=== PATIENT | female | born 1975 ===

== ENCOUNTER 2020-01-25 14:21 | Emergency (ER) | payer OTHER ==
[~2020-01-25] VITALS: Ht 182.9 cm; Wt 64.0 kg
[2020-01-25 14:40] VITALS: BP 115/72
--- NOTE | 2020-01-25 14:45 | NUR ---
THIS IS A 44 YO F BIB EMS AND [facility] W/ C/O SI/SA. EMS PROVIDED 4 PAGE LETTER WRITTEN BY PT OUTLINING THE REASON FOR HER DECISION, HOW SHE FAILED A PHYSICIAN AND HER WISHES FOR AFTER HER . PT REPORTS TAKING VALIUM AND WINE ON FRIDAY AFTERNOON, WHEN ASKED PT HOW MUCH VALIUM SHE TOOK SHE STATES "I DONT REMEMBER, NOT ENOUGH". [facility] REPORTS PT TEXTED FAMILY REPORTING THAT SHE ATTEMPTED TO KILL HERSELF AND THAT SHE IS DISAPPOINTED THAT SHE WOKE UP. PT PRESENTS WITH A FLAT AFFECT, AMBULATED W/ A STEADY GAIT TO THE BR. VSSBISIN. URINE COLLECTED AND SENT TO LAB. PT UPDATED ON LEGAL HOLD PROCESS. BELONGINGS REMOVED AND PLACED IN SAFETY LOCKER. GARAGE DOORS DOWN. SITTER LOCATED OUTSIDE ROOM. AT BEDSIDE FOR ED EVAL.
--- NOTE | 2020-01-25 15:00 | NUR ---
JULIO C LowryAARON) [phone] LICO ([employer]) [phone] Addendum: 01/25/20 at 1515 by CBRUCIAGA JULIO C ROSENBAUM) CELL: [phone] WORK: [phone] LICO ([employer]UGH[employer]) [phone]
[2020-01-25 15:11] LABS: AMPHETAMINE SCREEN, URINE Negative (Negative); BARBITURATE SCREEN, URINE Negative (Negative); BENZODIAZEPINE SCREEN, URINE Positive (Negative); CANNABINOID SCREEN, URINE Negative (Negative); COCAINE SCREEN, URINE Negative (Negative); METHADONE SCREEN, URINE Negative (Negative); OPIATE SCREEN, URINE Negative (Negative)
--- NOTE | 2020-01-25 15:17 | NUR ---
NOEL GRACIA AT BEDSIDE.
[2020-01-25 15:20] LABS: BASOPHILS # (AUTO) 0.07 x10^3/uL (0-0.1); BASOPHILS % (AUTO) 1 % (0-1); EOSINOPHILS # (AUTO) 0.11 x10^3/uL (0-0.4); EOSINOPHILS % (AUTO) 2 % (1-7); LYMPHOCYTES % (AUTO) 33 % (22-44); MD NO; MEAN CORPUSCULAR HGB CONC 32.8 g/dL (32.4-35.8); MEAN CORPUSCULAR VOLUME 94.5 fL (80-100); MEAN PLATELET VOLUME 8.1 fL (7.4-10.4); MONOCYTES # (AUTO) 0.33 x10^3/uL (0.2-0.8); MONOCYTES % (AUTO) 5 % (2-9); NEUTROPHILS # (AUTO) 4.39 x10^3/uL (1.8-6.8); NEUTROPHILS % (AUTO) 60 % (42-75); PLATELET COUNT 287 x10^3/uL (130-400); RED BLOOD COUNT 4.41 x10^6/uL (3.82-5.3); RED CELL DISTRIBUTION WIDTH 14.6 % (9.6-15.2)
[2020-01-25 15:33] LABS: SALICYLATE LEVEL < 1.7 mg/dL (2.8-20.0)
--- NOTE | 2020-01-25 15:34 | NUR ---
PT RESTING ON IGNACIO BACK. GARAGE DOORS DOWN, SITTER OUTSIDE ROOM.
--- NOTE | 2020-01-25 15:44 | NUR ---
NOEL GRACIA REPORTS PT WILL REMAIN ON HOLD.
[2020-01-25] MEDS ORDERED: HYDROXYZINE PAMOATE 50MG CAP PO PRN (16:00)
--- NOTE | 2020-01-25 16:36 | NUR ---
REGISTRATION IN ROOM UPDATING PT INFO. PT WISHES TO REMAIN ANONOMYOUS ON TRACKER.
[2020-01-25] MEDS ORDERED: LOSA25TA12 PO (16:41)
[2020-01-25] MEDS ORDERED: METH5SOL PO (16:41)
--- NOTE | 2020-01-25 16:43 | NUR ---
ED DIET TRAY ORDERED.
--- NOTE | 2020-01-25 17:02 | NUR ---
PT RESTING ON IGNACIO BACK. GARAGE DOORS DOWN, SITTER OUTSIDE ROOM.
--- NOTE | 2020-01-25 17:14 | NUR ---
ED DIET TRAY DELIVERED.
[2020-01-25 17:22] LABS: ALBUMIN 3.8 g/dL (3.4-5.0); ANION GAP 8 mmol/L (5-15); CALCIUM 8.8 mg/dL (8.5-10.1); CHLORIDE 103 mmol/L (98-107)
[2020-01-25 17:25] LABS: ALANINE AMINOTRANSFERASE 29 U/L (12-78); ALKALINE PHOSPHATASE 52 U/L (45-117); BILIRUBIN,TOTAL 0.6 mg/dL (0.2-1.0); CREATININE 1.35 mg/dL (0.55-1.02); TOTAL PROTEIN 7.2 g/dL (6.4-8.2)
--- NOTE | 2020-01-25 17:30 | NUR ---
PT UPDATED POC FOR ADMIT TO [facility]
--- NOTE | 2020-01-25 18:02 | NUR ---
REPORT GIVEN TO GULSHAN PEÑA. PT IS READY FOR TRANSPORT AT THIS TIME.
--- NOTE | 2020-01-25 18:19 | NUR ---
PT TRANSPORTED UPSTAIRS AT THIS TIME.
[2020-01-25] MEDS ORDERED: SPIR50TA4 PO (21:03)
[2020-01-25] MEDS ORDERED: FLUO20CA19 PO (21:03)
[2020-01-25] MEDS ORDERED: GALA4TAB PO (21:03)
[2020-01-25] MEDS ORDERED: HYDR50TA99 PO (21:03)
[2020-01-25] MEDS ORDERED: FURO40TA6 PO (21:03)
== END 2020-01-25 18:23 ==
LOC: ED 14:44
DX: T51.92XA Toxic effect of unspecified alcohol, intentional self-harm, initial encounter (principal); T42.4X2A Poisoning by benzodiazepines, intentional self-harm, initial encounter; F33.2 Major depressive disorder, recurrent severe without psychotic features; Y92.89 Other specified places as the place of occurrence of the external cause
CPT/HCPCS: 36415; 80053; 80307; 84443; 84703; 85025; 93005; 99284